=== PATIENT | male | born 1965 | race Caucasian/White ===

== ENCOUNTER 2019-11-07 07:57 | Emergency (ER) | payer BC ==
[~2019-11-07] VITALS: Ht 193 cm; Wt 73.6 kg
[2019-11-07 08:04] VITALS: Ht 193 cm; Wt 73.6 kg
[2019-11-07] MEDS ORDERED: LISINOPRIL40 MG PO (08:05)
[2019-11-07] MEDS ORDERED: CHOLESTEROL MED? (08:06)
[2019-11-07 08:27] LABS: BASOPHILS 0.1 % (0-2); EOSINOPHILS 3.2 % (0-7); HEMATOCRIT 50.2 % (42.0-54.0); HEMOGLOBIN 17.5 g/dL (13.5-17.5); IMMATURE GRANULOCYTES 0.5 % (0-5); LYMPHOCYTES 8.4 % (15-50); MCH 31.3 pg (26.0-34.0); MCHC 34.9 g/dL (31.0-37.0); MCV 89.8 fL (80.0-100.0); MEAN PLATELET VOLUME 9.3 fL (7.4-10.4); MONOCYTES 4.5 % (2-11); NEUTROPHILS 83.3 % (40-80); PLATELET COUNT 243 10x3/uL (130-400); RBC 5.59 10x6/uL (4.20-6.10); RDW 12.6 % (11.5-14.5)
[2019-11-07 08:39] LABS: CALC OSMOLALITY 281 mosm/kg (275-300); CALCIUM 9.3 mg/dL (8.5-10.1); CARBON DIOXIDE 22.8 mmol/L (21.0-32.0); CHLORIDE - SERUM 105 mmol/L (98-107); CREATININE - SERUM 1.1 mg/dL (0.6-1.3); GLUCOSE 126 mg/dL (74-106); POTASSIUM - SERUM 4.3 mmol/L (3.5-5.1); SODIUM 138 mmol/L (136-145); UREA NITROGEN 23 mg/dL (7-18); eGFR NON AFRICAN AMERICAN 74 mL/min (90-120)
[2019-11-07 08:47] LABS: ALBUMIN 3.9 g/dL (3.4-5.0); ALKALINE PHOSPHATASE 81 U/L (30-120); ALT (SGPT) 27 U/L (10-68); AMYLASE - SERUM 41 U/L (25-115); BILIRUBIN - TOTAL 0.36 mg/dL (0.2-1.3); LIPASE 175 U/L (73-393); PROTEIN - SERUM 7.4 g/dL (6.4-8.2); TROPONIN-I < 0.017 ng/mL (0.000-0.060)
[2019-11-07 09:42] LABS: BILIRUBIN NEGATIVE (NEGATIVE); GLUCOSE NEGATIVE (NEGATIVE); KETONE NEGATIVE (NEGATIVE); NITRITE NEGATIVE (NEGATIVE); UROBILINOGEN NORMAL (NORMAL)
[2019-11-07] MEDS ORDERED: PERCOCET 5-3251 TAB PO (10:59)
[2019-11-07] MEDS ORDERED: PROTONIX40 MG PO (11:00)
[2019-11-07 12:00] VITALS: BP 127/84
== END 2019-11-07 11:16 | disposition home or self-care (01) ==
LOC: D.ER 07:57
PROVIDERS: Family Medicine
DX: K29.70 Gastritis, unspecified, without bleeding (principal); I10 Essential (primary) hypertension; R10.13 Epigastric pain

== ENCOUNTER 2019-11-27 02:30 | Inpatient (IN) | payer BC ==
[~2019-11-27] VITALS: Ht 193 cm; Wt 77.1 kg
[~2019-11-27 02:30] MED LIST: CHOLESTEROL MED?; LISINOPRIL40 MG PO; PERCOCET 5-3251 TAB PO; PROTONIX40 MG PO
[2019-11-27 02:44] LABS: BASOPHILS 0.1 % (0-2); EOSINOPHILS 6.2 % (0-7); HEMATOCRIT 44.2 % (42.0-54.0); HEMOGLOBIN 15.4 g/dL (13.5-17.5); IMMATURE GRANULOCYTES 0.1 % (0-5); LYMPHOCYTES 49.8 % (15-50); MCH 31.1 pg (26.0-34.0); MCHC 34.8 g/dL (31.0-37.0); MCV 89.3 fL (80.0-100.0); MEAN PLATELET VOLUME 8.9 fL (7.4-10.4); MONOCYTES 6.3 % (2-11); NEUTROPHILS 37.5 % (40-80); PLATELET COUNT 288 10x3/uL (130-400); RBC 4.95 10x6/uL (4.20-6.10); RDW 12.9 % (11.5-14.5); WBC 8.4 10x3/uL (4.8-10.8)
[2019-11-27 02:56] LABS: CALC OSMOLALITY 286 mosm/kg (275-300); CALCIUM 8.6 mg/dL (8.5-10.1); CARBON DIOXIDE 24.1 mmol/L (21.0-32.0); CHLORIDE - SERUM 106 mmol/L (98-107); CREATININE - SERUM 1.1 mg/dL (0.6-1.3); GLUCOSE 150 mg/dL (74-106); POTASSIUM - SERUM 3.2 mmol/L (3.5-5.1); SODIUM 140 mmol/L (136-145); UREA NITROGEN 26 mg/dL (7-18); eGFR NON AFRICAN AMERICAN 74 mL/min (90-120)
[2019-11-27 03:10] LABS: ALBUMIN 3.4 g/dL (3.4-5.0); ALKALINE PHOSPHATASE 77 U/L (30-120); ALT (SGPT) 30 U/L (10-68); BILIRUBIN - TOTAL 0.26 mg/dL (0.2-1.3); C-REACTIVE PROTEIN 0.5 mg/dL (0.0-0.9); MAGNESIUM - SERUM 1.9 mg/dL (1.8-2.4); PRO BNP 27 pg/mL (0-125); PROTEIN - SERUM 6.5 g/dL (6.4-8.2)
[2019-11-27 03:11] LABS: LIPASE 3408 U/L (73-393); TROPONIN-I < 0.017 ng/mL (0.000-0.060)
--- NOTE | 2019-11-27 04:05 | NUR ---
PT BACK FROM CT AT THIS TIME.
[2019-11-27 05:22] VITALS: BP 112/70; BMI 20.7
[2019-11-27 08:50] VITALS: BP 107/69
[2019-11-27 10:25] LABS: INR 0.94 (0.85-1.17); PROTIME 12.6 SECONDS (11.6-15.0)
[2019-11-27 12:59] VITALS: Ht 193 cm; Wt 77.1 kg
[2019-11-27 13:31] VITALS: BP 117/78
[2019-11-27 16:37] VITALS: BP 130/89
[2019-11-27 16:39] LABS: CREATINE KINASE 62 UL (21-232)
[2019-11-27 16:44] LABS: TROPONIN-I < 0.017 ng/mL (0.000-0.060)
[2019-11-27 20:00] VITALS: BP 119/81
[2019-11-27 21:14] LABS: CKMB 0.8 U/L (0.0-3.6); CREATINE KINASE 67 UL (21-232)
[2019-11-27 21:17] LABS: TROPONIN-I < 0.017 ng/mL (0.000-0.060)
[2019-11-28] VITALS: BP 149/88
[2019-11-28 04:00] VITALS: BP 131/82
[2019-11-28 04:53] LABS: BASOPHILS 0 % (0-2); EOSINOPHILS 0 % (0-7); HEMATOCRIT 36.6 % (42.0-54.0); HEMOGLOBIN 12.5 g/dL (13.5-17.5); IMMATURE GRANULOCYTES 0.1 % (0-5); LYMPHOCYTES 10.3 % (15-50); MCH 30.6 pg (26.0-34.0); MCHC 34.2 g/dL (31.0-37.0); MCV 89.7 fL (80.0-100.0); MEAN PLATELET VOLUME 9.2 fL (7.4-10.4); MONOCYTES 5.9 % (2-11); NEUTROPHILS 83.7 % (40-80); PLATELET COUNT 240 10x3/uL (130-400); RBC 4.08 10x6/uL (4.20-6.10); RDW 12.8 % (11.5-14.5); WBC 10.2 10x3/uL (4.8-10.8)
[2019-11-28 05:37] LABS: ALBUMIN 2.8 g/dL (3.4-5.0); ALKALINE PHOSPHATASE 58 U/L (30-120); ALT (SGPT) 24 U/L (10-68); BILIRUBIN - TOTAL 0.29 mg/dL (0.2-1.3); CALCIUM 7.5 mg/dL (8.5-10.1); CARBON DIOXIDE 25.4 mmol/L (21.0-32.0); CHLORIDE - SERUM 111 mmol/L (98-107); CKMB 0.8 U/L (0.0-3.6); CREATINE KINASE 57 UL (21-232); GLUCOSE 107 mg/dL (74-106); POTASSIUM - SERUM 3.5 mmol/L (3.5-5.1); PROTEIN - SERUM 5.5 g/dL (6.4-8.2); SODIUM 141 mmol/L (136-145); TROPONIN-I < 0.017 ng/mL (0.000-0.060)
[2019-11-28 05:41] LABS: CALC OSMOLALITY 280 mosm/kg (275-300); CREATININE - SERUM 0.8 mg/dL (0.6-1.3); LIPASE 83 U/L (73-393); UREA NITROGEN 12 mg/dL (7-18); eGFR NON AFRICAN AMERICAN > 90 mL/min (90-120)
--- NOTE | 2019-11-28 06:52 | NUR ---
I have reviewed this patient and I concur with the Shift Assessment completed by the Licensed Practical Nurse today this shift.
--- NOTE | 2019-11-28 07:46 | NUR ---
PT BLOOD PRESSURE ELEVATED TODAY. BP MEDICATION HELD ON JUN WILL RELAY MESSAGE TO HOSPITALIST
[2019-11-28 08:00] VITALS: BP 154/103
[2019-11-28 12:00] VITALS: BP 147/94
--- NOTE | 2019-11-28 12:43 | NUR ---
OT NOTE/EVAL: PT ADMITTED FOR PANCREATITIS. PT WAS UP IN ROOM AMBULATING AD MEG AROUND BED, TO BATHROOM, ETC.. PT WITH NO DEFECITS IN UE AROM OR STRENGTH. INDEP WITH ADLS. PT LIVES WITH .. 2 STEPS INTO HOME. DOES NOT REQUIRE ANY ASSISTIVE DEVICE. NO OT RECOMMENDED AT THIS TIME. ISAAC GONSALEZ, OTR/L
[2019-11-28 14:11] LABS: CHOL - HDL RATIO 4.8 ratio (2.3-4.9); LDL-HDL RATIO 3.4 ratio (1.5-3.5)
[2019-11-28] MEDS ORDERED: PLAVIX75 MG PO (14:30)
[2019-11-28] MEDS ORDERED: FLORAJEN3 CAPS460 MG PO (14:31)
[2019-11-28] MEDS ORDERED: CARAFATE1 G PO (14:31)
[2019-11-28] MEDS ORDERED: LIPITOR20 MG PO (14:31)
[2019-11-28] MEDS ORDERED: FLAGYL500 MG PO (14:32)
[2019-11-28] MEDS ORDERED: LEVOFLOXACIN500 MG PO (14:32)
[2019-11-28] MEDS ORDERED: NICODERM CQ1 EAC3 TOPICAL (15:04)
== END 2019-11-28 17:10 | disposition home or self-care (01) | DRG 439 ==
LOC: D.ER 02:30 → D.MS 04:10
PROVIDERS: Family Medicine; Family Medicine Adult Medicine; ADMIT Family Medicine; ATTEND Family Medicine
DX: K85.90 Acute pancreatitis without necrosis or infection, unspecified (principal); F17.203 Nicotine dependence unspecified, with withdrawal; G81.94 Hemiplegia, unspecified affecting left nondominant side; R20.2 Paresthesia of skin; K40.90 Unilateral inguinal hernia, without obstruction or gangrene, not specified as recurrent; E87.6 Hypokalemia; R73.9 Hyperglycemia, unspecified; I10 Essential (primary) hypertension; K21.9 Gastro-esophageal reflux disease without esophagitis; R19.7 Diarrhea, unspecified; Z72.89 Other problems related to lifestyle